=== PATIENT | female | born 1995 ===

== ENCOUNTER 2023-10-12 15:29 | Outpatient (CLI) | payer OTHER | END 2023-10-12 15:38 | disposition home or self-care (01) | LOC: PRENATAL 15:29 | PROVIDERS: ATTEND Obstetrics & Gynecology Maternal & Fetal Medicine | DX: O35.9XX0 Maternal care for (suspected) fetal abnormality and damage, unspecified, not applicable or unspecified (principal); O35.3XX0 Maternal care for (suspected) damage to fetus from viral disease in mother, not applicable or unspecified; O44.00 Complete placenta previa NOS or without hemorrhage, unspecified trimester; O24.419 Gestational diabetes mellitus in pregnancy, unspecified control; O34.10 Maternal care for benign tumor of corpus uteri, unspecified trimester; Z3A.21 21 weeks gestation of pregnancy ==

== ENCOUNTER 2023-11-08 11:14 | Outpatient (CLI) | payer OTHER | END 2023-11-08 11:15 | disposition home or self-care (01) | LOC: PRENATAL 11:14 | PROVIDERS: ATTEND Obstetrics & Gynecology Maternal & Fetal Medicine | DX: O26.849 Uterine size-date discrepancy, unspecified trimester (principal); O24.419 Gestational diabetes mellitus in pregnancy, unspecified control; O34.10 Maternal care for benign tumor of corpus uteri, unspecified trimester; Z3A.25 25 weeks gestation of pregnancy ==

== ENCOUNTER 2023-12-06 10:14 | Outpatient (CLI) | payer OTHER | END 2023-12-06 10:15 | disposition home or self-care (01) | LOC: PRENATAL 10:14 | PROVIDERS: ATTEND Obstetrics & Gynecology Maternal & Fetal Medicine | DX: O26.849 Uterine size-date discrepancy, unspecified trimester (principal); O36.8199 Decreased fetal movements, unspecified trimester, other fetus; Z3A.29 29 weeks gestation of pregnancy ==

== ENCOUNTER → 2024-01-03 10:03 | Outpatient (CLI) | payer OTHER | END | disposition home or self-care (01) | LOC: PRENATAL 10:03 | PROVIDERS: ATTEND Obstetrics & Gynecology Maternal & Fetal Medicine | DX: O26.849 Uterine size-date discrepancy, unspecified trimester (principal); O36.8199 Decreased fetal movements, unspecified trimester, other fetus; O24.419 Gestational diabetes mellitus in pregnancy, unspecified control; O34.10 Maternal care for benign tumor of corpus uteri, unspecified trimester; Z3A.33 33 weeks gestation of pregnancy ==